=== PATIENT | female | born 1970 | race Caucasian/White ===

== ENCOUNTER 2019-04-30 16:35 | Inpatient (IN) | payer BC ==
[~2019-04-30 16:35] MED LIST: ISOVUE-370 76%-LOCM 1 ML ONE
[2019-04-30] MEDS ORDERED: Fentanyl 100 MCG/2 ML VIAL ONE (16:56)
[2019-04-30 17:38] LABS: #Basophils 0.1 thou/uL (0.0-0.2); #Eosinphils 0.1 thou/uL (0.0-0.7); #Lymphocytes 1.3 thou/uL (1.20-3.40); #Monocytes 0.5 thou/uL (0.11-0.59); #Neutrophils 7.4 thou/uL (1.40-6.50); %Basophils 0.8 % (0.0-1.0); %Eosinophils 1.6 % (0.0-10.0); %Lymphocytes 13.4 % (21.0-51.0); %Monocytes 5.4 % (0.0-10.0); %Neutrophils 78.7 % (42.0-75.0); Hemoglobin 13.9 g/dL (12.0-16.0); Mean Corpuscular HGB CONC 33.6 g/dL (32.0-36.0); Mean Corpuscular Hemoglobin 34.7 pg (27.0-31.0); Platelet Count 172 thou/uL (130-400); RBC Distribution Width 12.3 % (11.5-14.5); White Blood Cell (WBC) Count 9.4 thou/uL (4.8-10.8)
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
[2019-04-30 17:45] LABS: BHCG - Serum Negative (NEGATIVE); Pregs Control Background? CLEAR/WHITE (CLR/WHITE); Pregs Control Bar Appear? YES (CONTROL BAR)
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
[2019-04-30 17:59] LABS: ALT (SGPT) 30 U/L (8-55); AST (SGOT) 24 U/L (5-34); Albumin 3.5 g/dL (3.5-5.0); Alkaline Phosphatase 53 U/L (40-150); Anion Gap 11 mmol/L (10-20); BUN (Urea Nitrogen) 8 mg/dL (7.0-18.7); Bilirubin, Total 0.2 mg/dL (0.2-1.2); Calc. Creatinine Clearance 0 mL/min (70-130); Calcium 7.8 mg/dL (7.8-10.44); Carbon Dioxide 25 mmol/L (22-29); Chloride 108 mmol/L (98-107); Estimated GFR-MDRD Greater than 90; Globulin 2.2 g/dL (2.4-3.5); Glucose 77 mg/dL (70-105); Lipase 34 U/L (8-78); Potassium 3.5 mmol/L (3.5-5.1); Protein, Total 5.7 g/dL (6.0-8.3); Sodium 140 mmol/L (136-145)
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
[2019-04-30] MEDS ORDERED: Ketorolac Tromethamine 30 MG/ML VIAL ONE ×2 (18:28→18:29)
[2019-04-30] MEDS ORDERED: Morphine 4 MG/ML VIAL ONE (18:28)
[2019-04-30 18:33] LABS: Bilirubin Negative (Negative); Blood, Urine Negative (Negative); Clarity CLEAR (Clear); Glucose, Urine (Dipstick) Negative (Negative); Leukocyte Negative (Negative); Nitrite Negative (Negative); Protein, Urine (Dipstick) Negative (Neg-Trace); Urobilinogen 0.2 mg/dL (0.2-1.0)
[2019-04-30] MEDS ORDERED: Dextrose 5% in Water 1,000 ML IV PRN (19:54)
[2019-04-30] MEDS ORDERED: Dextrose 50% Abboject 50 ML SYRINGE SLOW IVP PRN (19:54)
[2019-04-30] MEDS ORDERED: Ondansetron ODT 4 MG TAB PO PRN (19:54)
[2019-04-30] MEDS ORDERED: Promethazine HCl 25 MG/ML VIAL IM PRN (19:54)
[2019-04-30] MEDS: Famotidine 20 MG TAB PO SCH (20:15)
[2019-04-30] MEDS: Cyclobenzaprine 10 MG TAB PO PRN (20:15)
[2019-04-30] MEDS: Gabapentin 300 MG CAP PO SCH (20:15)
[2019-04-30] MEDS: traMADol HCl 50 MG TAB PO PRN (20:15)
[2019-04-30] MEDS: Ondansetron PF 4 MG/2 ML Vial IVP PRN (20:16)
[2019-04-30] MEDS: Acetaminophen 325 MG TAB PO SCH (20:48)
[2019-04-30] MEDS: traMADol HCl 50 MG TAB PO SCH (20:48)
[2019-04-30] MEDS: Ibuprofen 600 MG TAB PO SCH (20:48)
[2019-04-30] MEDS: Promethazine HCl 25 MG/ML VIAL IM PRN (21:27)
[2019-04-30] MEDS ORDERED: Acetaminophen 325 MG TAB PO SCH (23:59)
[2019-04-30] MEDS ORDERED: traMADol HCl 50 MG TAB PO SCH (23:59)
[2019-04-30] MEDS ORDERED: Ibuprofen 600 MG TAB PO SCH (23:59)
[2019-05-01 02:09] VITALS: BMI 22.4
[2019-05-01] MEDS: traMADol HCl 50 MG TAB PO SCH ×3 (02:46→20:24)
[2019-05-01] MEDS: Acetaminophen 325 MG TAB PO SCH ×4 (02:46→20:24)
[2019-05-01] MEDS: Ibuprofen 600 MG TAB PO SCH ×4 (02:46→20:24)
[2019-05-01] MEDS: traMADol HCl 50 MG TAB PO PRN ×2 (02:47→11:21)
[2019-05-01 05:22] LABS: #Basophils 0.1 thou/uL (0.0-0.2); #Eosinphils 0.2 thou/uL (0.0-0.7); #Lymphocytes 1.7 thou/uL (1.20-3.40); #Monocytes 0.7 thou/uL (0.11-0.59); %Eosinophils 2.9 % (0.0-10.0); %Lymphocytes 21.6 % (21.0-51.0); %Monocytes 9.7 % (0.0-10.0); %Neutrophils 64.9 % (42.0-75.0); Hemoglobin 12.7 g/dL (12.0-16.0); Mean Corpuscular HGB CONC 32.8 g/dL (32.0-36.0); Mean Corpuscular Hemoglobin 34.3 pg (27.0-31.0); Mean Platelet Volume 8.3 fL (7.4-10.4); Platelet Count 160 thou/uL (130-400); RBC Distribution Width 12.4 % (11.5-14.5); White Blood Cell (WBC) Count 7.6 thou/uL (4.8-10.8)
[2019-05-01 05:39] LABS: Anion Gap 9 mmol/L (10-20); BUN (Urea Nitrogen) 13 mg/dL (7.0-18.7); Calc. Creatinine Clearance 103 mL/min (70-130); Calcium 8.3 mg/dL (7.8-10.44); Carbon Dioxide 27 mmol/L (22-29); Chloride 109 mmol/L (98-107); Estimated GFR-MDRD Greater than 90; Glucose 91 mg/dL (70-105); Potassium 4.5 mmol/L (3.5-5.1); Sodium 140 mmol/L (136-145)
[2019-05-01] MEDS: Famotidine 20 MG TAB PO SCH ×2 (08:10→20:24)
[2019-05-01] MEDS: Gabapentin 300 MG CAP PO SCH ×2 (08:10→20:24)
--- NOTE | 2019-05-01 09:01 | RAD ---
CHEST 1 VIEW: Date: 05/01/19 HISTORY: Follow-up left-sided rib fractures and hemothorax. COMPARISON: Prior day's study. FINDINGS: Heart size within normal limits. Left-sided pleural and parenchymal lung changes and rib fractures ar e again noted. No pneumothorax demonstrated. The right lung remains clear. IMPRESSION: Stable exam. POS: [facility]
[2019-05-01] MEDS ORDERED: Lidocaine 1% (PF) 30 ML VIAL ONE (10:26)
[2019-05-01] MEDS ORDERED: Morphine 4 MG/ML VIAL ONE (11:51)
[2019-05-01] MEDS: Cyclobenzaprine 10 MG TAB PO PRN (13:10)
[2019-05-01] MEDS: Ondansetron PF 4 MG/2 ML Vial IVP PRN (13:10)
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
[2019-05-02] MEDS: Acetaminophen 325 MG TAB PO SCH ×4 (03:57→20:27)
[2019-05-02] MEDS: Ibuprofen 600 MG TAB PO SCH ×4 (03:57→20:27)
[2019-05-02] MEDS: traMADol HCl 50 MG TAB PO SCH ×3 (03:57→20:28)
[2019-05-02 05:20] LABS: #Basophils 0.1 thou/uL (0.0-0.2); #Eosinphils 0.2 thou/uL (0.0-0.7); #Lymphocytes 1.6 thou/uL (1.20-3.40); #Monocytes 0.7 thou/uL (0.11-0.59); #Neutrophils 4.6 thou/uL (1.40-6.50); %Basophils 0.9 % (0.0-1.0); %Eosinophils 2.9 % (0.0-10.0); %Lymphocytes 22.1 % (21.0-51.0); %Monocytes 9.8 % (0.0-10.0); %Neutrophils 64.2 % (42.0-75.0); Hemoglobin 12.9 g/dL (12.0-16.0); Mean Corpuscular HGB CONC 31.9 g/dL (32.0-36.0); Mean Corpuscular Hemoglobin 33.9 pg (27.0-31.0); Mean Platelet Volume 8.3 fL (7.4-10.4); Platelet Count 153 thou/uL (130-400); RBC Distribution Width 12.5 % (11.5-14.5); White Blood Cell (WBC) Count 7.1 thou/uL (4.8-10.8)
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
[2019-05-02] MEDS: Gabapentin 300 MG CAP PO SCH ×2 (08:08→20:27)
[2019-05-02] MEDS: Famotidine 20 MG TAB PO SCH ×2 (08:09→20:27)
[2019-05-02] MEDS: Cyclobenzaprine 10 MG TAB PO PRN ×2 (08:14→21:39)
--- NOTE | 2019-05-02 08:53 | RAD ---
CHEST 1 VIEW: COMPARISON: 05/01/2019. HISTORY: Chest tube. Hemothorax. FINDINGS: Normal cardiac silhouette. The pulmonary vessels and hilum are normal. Right costophrenic angle is clear. Minimal blunting of the left costophrenic angle. Left-sided chest tube at the left lung base is noted. Small left-sided effusion. There are left rib fractures. No significant pneumothorax. IMPRESSION: Posttraumatic changes as above. No significant pneumothorax. POS: [facility]
[2019-05-02] MEDS: Enoxaparin Sodium 40 MG/0.4 ML SYRINGE SC SCH (11:16)
[2019-05-02] MEDS: Scopolamine 1.5 mg/72 hour Patch TOP SCH (12:38)
[2019-05-02] MEDS: traMADol HCl 50 MG TAB PO PRN ×2 (12:44→21:38)
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
[2019-05-03] MEDS: Ibuprofen 600 MG TAB PO SCH ×4 (02:19→21:38)
[2019-05-03] MEDS: traMADol HCl 50 MG TAB PO SCH ×3 (02:20→23:45)
[2019-05-03] MEDS: Acetaminophen 325 MG TAB PO SCH ×4 (02:22→22:11)
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
[2019-05-03] MEDS: Famotidine 20 MG TAB PO SCH ×2 (08:31→21:37)
[2019-05-03] MEDS: Gabapentin 300 MG CAP PO SCH ×3 (08:31→21:38)
[2019-05-03] MEDS: Enoxaparin Sodium 40 MG/0.4 ML SYRINGE SC SCH (08:31)
[2019-05-03] MEDS: Ondansetron PF 4 MG/2 ML Vial IVP PRN (08:43)
--- NOTE | 2019-05-03 09:23 | RAD ---
CHEST 1 VIEW: HISTORY: Followup hemothorax. COMPARISON: 05/02/2019. FINDINGS: A left chest tube is noted in the left lower chest. There is a possible tiny apical pneumothorax. P leural and parenchymal opacity changes in the left chest are overall stable. There appear to be some new abnormal opacity changes in the right infrahilar region raising concern for some developing part ial atelectasis and/or right-sided pleural fluid. IMPRESSION: Overall stable-appearing left chest. Developing right infrahilar increased density, evidence for rig ht lower lobe partial atelectasis and/or some developing right pleural fluid. Continued short-term f ollowup. POS: [facility]
[2019-05-03] MEDS: traMADol HCl 50 MG TAB PO PRN (13:49)
[2019-05-03] MEDS: Promethazine HCl 25 MG/ML VIAL IM PRN (13:50)
[2019-05-03] MEDS: Acetaminophen 500 MG TAB PO SCH (21:37)
[2019-05-03] MEDS: Nicotine 14 MG PATCH TOP SCH (22:50)
[2019-05-04] MEDS: Acetaminophen 500 MG TAB PO SCH ×4 (03:28→20:52)
[2019-05-04] MEDS: Ibuprofen 600 MG TAB PO SCH ×4 (03:29→20:52)
[2019-05-04] MEDS: traMADol HCl 50 MG TAB PO SCH ×4 (05:56→23:33)
--- NOTE | 2019-05-04 08:02 | RAD ---
XR Chest 1 View Portable History: Chest tube placement Comparison: Radiograph April 03, 2019 Findings: Interval placement of a left basilar thoracostomy tube with slight size decrease layering l eft effusion. Mildly displaced left sided rib fractures persist. Mild right-sided atelectasis. Impression: Interval size decrease layering left pleural effusion with indwelling basilar thoracostom y tube.
[2019-05-04] MEDS: Enoxaparin Sodium 40 MG/0.4 ML SYRINGE SC SCH (08:20)
[2019-05-04] MEDS: Famotidine 20 MG TAB PO SCH ×2 (08:21→20:53)
[2019-05-04] MEDS: Gabapentin 300 MG CAP PO SCH ×3 (08:21→20:53)
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
--- NOTE | 2019-05-04 15:27 | RAD ---
CHEST 1 VIEW: Date: 05/04/19 HISTORY: Follow-up chest tube. COMPARISON: 05/04/19, 0744 hours. FINDINGS: There is a small to potentially moderate left-sided pneumothorax, particularly in the left upper ches t, but also some air along the right hemidiaphragm and medially along the mediastinum. Left chest tub e remains in place in the lower chest. Bibasilar parenchymal changes are again noted, somewhat more p rominent in the left chest. Heart size is normal. IMPRESSION: Small, up to potentially moderate, left-sided pneumothorax, possibly increasing somewhat from the tova or study. Bibasilar parenchymal changes, overall stable. Continue short-term follow-up. POS: [facility]
[2019-05-04] MEDS: Nicotine 14 MG PATCH TOP SCH (22:38)
[2019-05-04] MEDS: Cyclobenzaprine 10 MG TAB PO PRN (22:38)
[2019-05-05] MEDS: Ibuprofen 600 MG TAB PO SCH ×4 (03:06→21:11)
[2019-05-05] MEDS: Acetaminophen 500 MG TAB PO SCH ×4 (03:07→21:10)
[2019-05-05] MEDS: traMADol HCl 50 MG TAB PO SCH ×4 (05:23→23:34)
[2019-05-05 05:46] LABS: Anion Gap 10 mmol/L (10-20); BUN (Urea Nitrogen) 14 mg/dL (7.0-18.7); Calc. Creatinine Clearance 126 mL/min (70-130); Calcium 8.7 mg/dL (7.8-10.44); Carbon Dioxide 32 mmol/L (22-29); Chloride 99 mmol/L (98-107); Estimated GFR-MDRD Greater than 90; Glucose 84 mg/dL (70-105); Potassium 4.3 mmol/L (3.5-5.1); Sodium 137 mmol/L (136-145)
[2019-05-05] MEDS: traMADol HCl 50 MG TAB PO PRN (06:30)
--- NOTE | 2019-05-05 07:20 | RAD ---
FRONTAL VIEW CHEST: Date: 05/05/19 INDICATION: Pneumothorax, follow-up. FINDINGS: Reference is made to chest radiograph exams performed on the previous day. Small volume predominantly left apical pneumothorax remains, and is similar appearing. Persistent den sity at the inferior left chest is present with interval removal of prior left thoracostomy. Inferola teral left rib fractures are again seen. Chest is otherwise similar. IMPRESSION: 1. Interval removal of left chest tube, with grossly stable small volume left pneumothorax. 2. Persistent patchy densities, inferior left chest, with adjacent several left rib fractures. POS: [facility]
[2019-05-05] MEDS: Enoxaparin Sodium 40 MG/0.4 ML SYRINGE SC SCH (09:14)
[2019-05-05] MEDS: Famotidine 20 MG TAB PO SCH ×2 (09:15→21:11)
[2019-05-05] MEDS: Gabapentin 300 MG CAP PO SCH ×3 (09:15→21:10)
[2019-05-05] MEDS: Thiamine 100 MG TAB PO SCH (09:15)
[2019-05-05] MEDS: Folic Acid 1 MG TAB PO SCH (09:15)
[2019-05-05] MEDS ORDERED: Senokot 8.6 MG TAB PO SCH (10:45)
[2019-05-05] MEDS: Scopolamine 1.5 mg/72 hour Patch TOP SCH (11:58)
[2019-05-05] MEDS ORDERED: Ipratropium Bromide 2.5 ml Neb NEB SCH (13:00)
[2019-05-05] MEDS: methylPREDNISolone 4 mg Tablet PO SCH ×2 (17:37→21:12)
[2019-05-05] MEDS: Ipratropium Bromide 2.5 ml Neb NEB SCH ×4 (19:20→23:07)
[2019-05-05] MEDS: Nicotine 14 MG PATCH TOP SCH (21:11)
[2019-05-05] MEDS: Senokot S 8.6-50 MG TAB PO SCH (21:12)
[2019-05-06] MEDS: Ibuprofen 600 MG TAB PO SCH ×2 (03:20→08:39)
[2019-05-06] MEDS: Acetaminophen 500 MG TAB PO SCH ×2 (03:20→08:39)
[2019-05-06] MEDS: traMADol HCl 50 MG TAB PO SCH ×2 (05:16→12:29)
[2019-05-06] MEDS ORDERED: Spiriva 18 MCG CAP (Box of 5 Caps) INH SCH (07:00)
[2019-05-06] MEDS: Ipratropium Bromide 2.5 ml Neb NEB SCH ×2 (07:27→07:32)
[2019-05-06] MEDS ORDERED: methylPREDNISolone 4 mg Tablet PO SCH ×2 (08:00→21:00)
[2019-05-06] MEDS: Gabapentin 300 MG CAP PO SCH (08:39)
[2019-05-06] MEDS: Thiamine 100 MG TAB PO SCH (08:40)
[2019-05-06] MEDS: Famotidine 20 MG TAB PO SCH (08:40)
[2019-05-06] MEDS: Folic Acid 1 MG TAB PO SCH (08:40)
[2019-05-06] MEDS: Enoxaparin Sodium 40 MG/0.4 ML SYRINGE SC SCH (08:41)
[2019-05-06] MEDS: Senokot S 8.6-50 MG TAB PO SCH (08:41)
[2019-05-06] MEDS ORDERED: Polyethylene Glycol 3350 17 GM Packet PO SCH (09:00)
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
[2019-05-06 11:12] VITALS: BP 113/72; TEMP 98.3
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
[2019-05-07] MEDS ORDERED: methylPREDNISolone 4 mg Tablet PO SCH (08:00)
--- NOTE | 2019-05-07 21:10 | EKG ---
Test Reason : Blood Pressure : / mmHG Vent. Rate : 072 BPM Atrial Rate : 072 BPM P-R Int : 148 ms QRS Dur : 076 ms QT Int : 398 ms P-R-T Axes : 067 039 065 degrees QTc Int : 435 ms Normal sinus rhythm Normal ECG Confirmed by JARETH FRANCE ([id number]), scientific editor SOFIYA MENDIETA ([id number]) on 05/07/2019 9:09:55 PM Referred By: Confirmed By:JARETH FRANCE
[2019-05-08] MEDS ORDERED: methylPREDNISolone 4 mg Tablet PO SCH (08:00)
[2019-05-09] MEDS ORDERED: methylPREDNISolone 4 mg Tablet PO SCH (08:00)
[2019-05-10] MEDS ORDERED: methylPREDNISolone 4 mg Tablet PO SCH (08:00)
== END 2019-05-06 12:35 | disposition home or self-care (01) | DRG 200 ==
LOC: ERS 16:35 → SURG A 19:52 → OBSVTOIN 19:52
PROVIDERS: ADMIT Surgery; ATTEND Surgery
PROC: 0W9B30Z Drainage of Left Pleural Cavity with Drainage Device, Percutaneous Approach (ICD-10-PCS; principal; 2019-05-01)
DX: S27.1XXA Traumatic hemothorax, initial encounter (principal); S22.32XA Fracture of one rib, left side, initial encounter for closed fracture; R40.2412 Glasgow coma scale score 13-15, at arrival to emergency department; F17.210 Nicotine dependence, cigarettes, uncomplicated; J44.9 Chronic obstructive pulmonary disease, unspecified; I25.10 Atherosclerotic heart disease of native coronary artery without angina pectoris; F41.9 Anxiety disorder, unspecified; Z90.49 Acquired absence of other specified parts of digestive tract; V91.88XA Other injury due to other accident to other unpowered watercraft, initial encounter; Z98.51 Tubal ligation status
CPT/HCPCS: 36415; 36416; 70450; 71045; 71260; 72125; 74177; 80048; 80053; 81003; 82550; 83605; 83690; 84703; 85025; 93005; 94640; 96361; 96374; 96375; J1650; J1885; J2001; J2270; J2405; J2550; J3010; J7620; Q0162; Q9966

== ENCOUNTER 2019-05-17 13:22 | Outpatient (CLI) | payer BC ==
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
== END 2019-05-17 13:23 | disposition home or self-care (01) ==
LOC: RAD 13:22
PROVIDERS: ATTEND Surgery
DX: S22.42XD Multiple fractures of ribs, left side, subsequent encounter for fracture with routine healing (principal); J94.2 Hemothorax; J98.4 Other disorders of lung
CPT/HCPCS: 71046

== ENCOUNTER 2019-12-07 15:14 | Outpatient (CLI) | payer BC ==
--- NOTE | 2019-12-07 15:38 | RAD ---
Left femur 2 views HISTORY: Back pain. FINDINGS: Near complete loss of joint space at the hip with moderate osteophytosis and subchondral sc lerosis. Mild articular surface irregularity of the femoral head. No acute fracture or dislocation evident. There are mild degenerative changes of the knee evident. IMPRESSION: Prominent OsteoArthritic changes left hip. No acute osseous abnormalities are otherwise d emonstrated.
== END 2019-12-07 15:15 | disposition home or self-care (01) ==
LOC: BICRAD 15:14
PROVIDERS: ATTEND Clinical Nurse Specialist Medical-Surgical
DX: M25.552 Pain in left hip (principal); M89.8X5 Other specified disorders of bone, thigh; M16.12 Unilateral primary osteoarthritis, left hip

== ENCOUNTER 2020-10-05 06:44 | Outpatient (CLI) | payer BC ==
[2020-10-05 13:19] LABS: #Eosinphils 0.1 10x3/uL (0.0-0.5); #Monocytes 0.5 10x3/uL (0.0-1.1); #Neutrophils 5.5 10x3/uL (1.5-8.4); %Basophils 0.5 % (0.0-2.0); %Eosinophils 1.3 % (0.0-6.0); %Lymphocytes 20.4 % (18.0-47.0); %Monocytes 6.1 % (0.0-10.0); %Neutrophils 71.4 % (40.0-75.0); Hemoglobin 13.6 g/dL (12.0-16.0); Mean Corpuscular HGB CONC 32.5 G/DL (32.0-36.0); Mean Corpuscular Hemoglobin 33.3 PG (27.0-33.0); Mean Corpuscular Volume 102.7 fl (80.0-100.0); Mean Platelet Volume 10.6 fl (7.4-10.4); Platelet Count 226 10x3/uL (130-400); RBC Distribution Width 12.6 % (11.5-14.5); Red Blood Cell (RBC) Count 4.08 10x6/uL (3.90-5.20); White Blood Cell (WBC) Count 7.7 10x3/uL (4.5-11.0)
[2020-10-05 13:28] LABS: Anion Gap 13 mmol/L (10-20); BUN (Urea Nitrogen) 15 mg/dL (7.0-18.7); Calc. Creatinine Clearance 0 mL/min (70-130); Calcium 9.6 mg/dL (7.8-10.44); Carbon Dioxide 28 mmol/L (22-29); Chloride 102 mmol/L (98-107); Glucose 81 mg/dL (70-105); Potassium 4.4 mmol/L (3.5-5.1); Sodium 139 mmol/L (136-145)
[2020-10-05 13:35] LABS: INR-International Normal Ratio 0.9
--- NOTE | 2020-10-05 16:17 | EKG ---
Test Reason : PREOP Blood Pressure : / mmHG Vent. Rate : 062 BPM Atrial Rate : 062 BPM P-R Int : 146 ms QRS Dur : 074 ms QT Int : 416 ms P-R-T Axes : 075 079 071 degrees QTc Int : 422 ms Normal sinus rhythm Normal ECG Confirmed by DR. Tammy LEOS ([id number]) on 10/05/2020 4:17:03 PM Referred By: KIRK Confirmed By:DR. Tammy LEOS
[2020-10-05 22:25] LABS: SARS-CoV-2 MS2 Positive; SARS-CoV-2 N Gene Negative; SARS-CoV-2 S Gene Negative; SARS-CoV-2 by NAA Not Detected (NotDetected); SARS-CoV-2 orf1ab Negative
== END 2020-10-05 06:45 | disposition home or self-care (01) ==
LOC: LABBT 06:44
PROVIDERS: ATTEND Orthopaedic Surgery
DX: Z01.818 Encounter for other preprocedural examination (principal); Z20.828 Contact with and (suspected) exposure to other viral communicable diseases; M17.11 Unilateral primary osteoarthritis, right knee
CPT/HCPCS: 80048; 85025; 85610; 87635; 93005; 93010; U0003

== ENCOUNTER 2020-10-05 11:00 | Inpatient (IN) | payer BC ==
[2020-10-09] MEDS ORDERED: Sodium Chloride 0.9% 100 ML ONE (06:14)
[2020-10-09] MEDS ORDERED: Tranexamic Acid 1,000 MG/10 ML VIAL ONE (06:14)
[2020-10-09] MEDS ORDERED: Vancomycin 1 GM/200 ML BAG ONE (06:15)
[2020-10-09] MEDS ORDERED: Bupivacaine 0.25% HCL 30 ML VIAL ONE (06:22)
[2020-10-09] MEDS ORDERED: Lidocaine 1% w/Epinephrine 1:100K 20 ML VIAL ONE (06:22)
[2020-10-09] MEDS ORDERED: Midazolam HCl 2 mg/2 ml Vial ONE (06:32)
[2020-10-09] MEDS ORDERED: Fentanyl 100 MCG/2 ML VIAL ONE ×4 (06:32→09:44)
[2020-10-09] MEDS ORDERED: Fentanyl 100 MCG/2 ML VIAL IV PRN (07:08)
[2020-10-09] MEDS ORDERED: traMADol HCl 50 MG TAB PO PRN ×2 (07:15)
[2020-10-09] MEDS ORDERED: Zolpidem Tartrate 5 MG TAB PO PRN ×3 (07:15→11:01)
[2020-10-09] MEDS ORDERED: Ondansetron PF 4 MG/2 ML Vial IVP PRN ×2 (07:15→08:41)
[2020-10-09] MEDS ORDERED: Promethazine HCl 25 MG/ML VIAL IM PRN ×3 (07:15→09:17)
[2020-10-09] MEDS ORDERED: HYDROcodone/Acetaminophen 10/325 mg Tablet PO PRN ×3 (07:15→08:41)
[2020-10-09] MEDS ORDERED: Ropivacaine HCl/PF 250 ML in Premix Bag 1 BAG NERVE BLCK SCH (07:15)
[2020-10-09] MEDS ORDERED: diphenhydrAMINE 25 MG CAP PO PRN (08:41)
[2020-10-09] MEDS ORDERED: Acetaminophen 325 MG TAB PO PRN (08:41)
[2020-10-09] MEDS ORDERED: Fentanyl 100 MCG/2 ML VIAL SLOW IVP PRN ×2 (08:41)
[2020-10-09] MEDS ORDERED: Ondansetron HCl/PF 4 MG/2 ML Vial IVP PRN (09:17)
[2020-10-09] MEDS ORDERED: Promethazine HCl 25 MG/ML VIAL SLOW IVP PRN (09:17)
--- NOTE | 2020-10-09 10:32 | OP ---
DATE OF PROCEDURE: 10/09/2020 PREOPERATIVE DIAGNOSIS: Right knee osteoarthritis. POSTOPERATIVE DIAGNOSIS: Right knee osteoarthritis. PROCEDURE PERFORMED: Right total knee arthroplasty. COST ACCOUNTING MANAGER: Abraham Perdomo PA-C ANESTHESIOLOGIST: Otto Barbosa MD ANESTHESIA: The patient received LMA with an adductor canal single shot sciatic. ESTIMATED BLOOD LOSS: 100 mL. TOURNIQUET TIME: 65 minutes at 300 mmHg. ANTIBIOTICS: Ancef 2 g, vancomycin 1 g, and TXA 1. IMPLANTS: The patient had a Colette Triathlon size 3 femur, size 3 tibia, 9 CS with A29 patella. COMPLICATIONS: None. HISTORY OF PRESENT ILLNESS: Ms. Hardin is a pleasant 50-year-old female who has failed nonoperative measures and elected to proceed with right total knee arthroplasty. I discussed with her the risks and benefits of right total knee arthroplasty to include pain, scar, bleeding, infection, damage to vital structures, decreased range of motion and strength, continued pain despite surgical intervention, need for implant removal, failure revision, and loss of life or limb. The patient understood the risks and benefits and elected to proceed. DESCRIPTION OF PROCEDURE: Time-out was performed designating the patient's right lower extremity as the operative site based on site, consents, and markings. After time-out, the patient's right upper extremity was prepped and draped in sterile fashion. Tourniquet was brought up and left for a total of 65 minutes. I did an anterior midline incision with medial patellar approach and excised our fat pad. We did our soft tissue release, everted our patella, selected the femur, looking at the knee. We then mapped out the distal femur cut at 8 and 9, 0 degrees of varus and valgus, 4 degrees of anterior slope. We then pinned our guide, cut, measured for 3, put a 3 block, cut anterior and posterior chamfer cuts, removed osteophytes, placed our pickle fork in position, and took off the tip of the tibial spines. We then mapped out and cut 6 minus 1, 0 degrees varus and valgus, and 4 degrees of posterior slope. We removed and cleaned up our knee. We then moved to place the lamina spreaders. We did our medial and lateral meniscectomies, did our posterior decompression of PCL. We then pinned our [address] and good overall alignment and tracking. I placed a 9 poly, placed our femur in place, had good extension, flexion and stability in varus and valgus, drawer, good arc of motion. We everted the patella, measured about 22, cut it down to 12, trialed for and drilled for A29 patella, which tracked well. We then drilled our lugs, cut our keel for tibia, removed all implants, washed thoroughly, placed with cement for tibia, removed excess and placed our poly. We placed our cement for femur, removed excess cement, washed, everted the patella, and placed our excess cement. We then flexed the knee back up, washed, and cleaned up any of the wounds. We then came back. We ensured that we cleaned out all the flexed knee. We then washed the joint one more time. We closed with #2 Vicryl, #2 Stratafix, 0 Stratafix, 2-0 Stratafix, and Dermabond Prineo with wound in flexion. We allowed the glue to set for 1 minute. The patient will be admitted to [facility] postop protocol. My fitter's assistant helped me with the positioning, incision, retraction of major structures, osteotomies, implantation, cleaning, closure, and application of dressings. Job ID: [id number]
[2020-10-09] MEDS ORDERED: Ropivacaine 0.2% HCl/PF (40 MG/20 ML VIAL) ONE (10:36)
[2020-10-09] MEDS ORDERED: ePHEDrine 50 MG/ML VIAL ONE (10:36)
[2020-10-09] MEDS ORDERED: Rocuronium Bromide 10 MG/ML (10ML VIAL) ONE (10:36)
[2020-10-09] MEDS ORDERED: Dexamethasone 20 MG/5 ML VIAL ONE (10:36)
[2020-10-09] MEDS ORDERED: PROPOFOL 200 MG/20 ML VIAL ONE (10:36)
[2020-10-09] MEDS ORDERED: Ondansetron PF 4 MG/2 ML Vial ONE (10:36)
[2020-10-09] MEDS ORDERED: Bupivacaine HCl 0.5%/Epinephrine 1:200,000/PF 30 ml Vial ONE (10:36)
[2020-10-09] MEDS ORDERED: Ketorolac Tromethamine 30 MG/ML VIAL ONE (10:36)
[2020-10-09 10:52] VITALS: BMI 20.9
[2020-10-09] MEDS: Multivitamin W/ Minerals 1 TAB PO SCH (11:21)
[2020-10-09] MEDS: Dextrose 5 %-0.45 % NaCl 1,000 ML IV SCH ×2 (11:21→17:55)
[2020-10-09] MEDS: Aspirin 81 mg Enteric Coated Tablet PO SCH ×2 (11:21→21:35)
[2020-10-09] MEDS: Ferrous Gluconate 324 MG TAB PO SCH ×2 (11:21→21:35)
[2020-10-09] MEDS: Senokot S 8.6-50 MG TAB PO SCH ×2 (11:21→21:35)
[2020-10-09] MEDS ORDERED: Ketorolac Tromethamine 30 MG/ML VIAL IVP SCH (12:00)
[2020-10-09] MEDS: HYDROcodone/Acetaminophen 10/325 mg Tablet PO PRN (12:56)
[2020-10-09] MEDS: CEFAZOLIN 2 GM in Premix Bag 1 BAG IVPB SCH ×2 (14:02→21:35)
[2020-10-09] MEDS: Ketorolac Tromethamine 30 MG/ML VIAL IVP SCH ×2 (14:03→21:35)
[2020-10-09] MEDS: traMADol HCl 50 MG TAB PO PRN (16:12)
[2020-10-09] MEDS ORDERED: Vancomycin 1 GM in Premix Bag 1 BAG IVPB SCH (18:00)
[2020-10-10] MEDS: Dextrose 5 %-0.45 % NaCl 1,000 ML IV SCH ×3 (03:16→23:59)
[2020-10-10] MEDS: HYDROcodone/Acetaminophen 10/325 mg Tablet PO PRN ×4 (03:46→21:01)
[2020-10-10] MEDS: Ketorolac Tromethamine 30 MG/ML VIAL IVP SCH ×3 (05:46→21:03)
[2020-10-10 06:34] LABS: Hemoglobin 11.4 g/dL (12.0-16.0); Mean Corpuscular HGB CONC 32.1 g/dL (32.0-36.0); Mean Corpuscular Hemoglobin 33.9 pg (27.0-31.0); Mean Platelet Volume 8.1 fL (7.4-10.4); Platelet Count 153 thou/uL (130-400); RBC Distribution Width 11.3 % (11.5-14.5); Red Blood Cell (RBC) Count 3.35 mill/uL (4.20-5.40); White Blood Cell (WBC) Count 9.5 thou/uL (4.8-10.8)
[2020-10-10] MEDS: traMADol HCl 50 MG TAB PO PRN ×2 (07:58→17:54)
[2020-10-10] MEDS: Senokot S 8.6-50 MG TAB PO SCH ×2 (07:59→21:02)
[2020-10-10] MEDS: Multivitamin W/ Minerals 1 TAB PO SCH (07:59)
[2020-10-10] MEDS: Aspirin 81 mg Enteric Coated Tablet PO SCH ×2 (07:59→21:02)
[2020-10-10] MEDS: Ferrous Gluconate 324 MG TAB PO SCH ×2 (07:59→21:02)
[2020-10-10] MEDS: Varenicline Tartrate 0.5 MG TAB PO SCH (09:13)
[2020-10-11] MEDS: HYDROcodone/Acetaminophen 10/325 mg Tablet PO PRN ×3 (04:04→13:35)
[2020-10-11] MEDS: Ketorolac Tromethamine 30 MG/ML VIAL IVP SCH ×2 (05:38→13:35)
[2020-10-11 06:06] LABS: Hemoglobin 10.9 g/dL (12.0-16.0); Mean Corpuscular HGB CONC 33.2 g/dL (32.0-36.0); Mean Corpuscular Hemoglobin 34.7 pg (27.0-31.0); Mean Platelet Volume 8.2 fL (7.4-10.4); Platelet Count 138 thou/uL (130-400); RBC Distribution Width 11.4 % (11.5-14.5); Red Blood Cell (RBC) Count 3.15 mill/uL (4.20-5.40); White Blood Cell (WBC) Count 7.7 thou/uL (4.8-10.8)
[2020-10-11] MEDS: Varenicline Tartrate 0.5 MG TAB PO SCH (08:20)
[2020-10-11] MEDS: Ferrous Gluconate 324 MG TAB PO SCH (08:21)
[2020-10-11] MEDS: Senokot S 8.6-50 MG TAB PO SCH (08:21)
[2020-10-11] MEDS: Aspirin 81 mg Enteric Coated Tablet PO SCH (08:21)
[2020-10-11] MEDS: Multivitamin W/ Minerals 1 TAB PO SCH (08:21)
[2020-10-11 11:16] VITALS: BP 110/70; TEMP 98.7
[2020-10-11] MEDS: Dextrose 5 %-0.45 % NaCl 1,000 ML IV SCH (20:54)
== END 2020-10-11 14:59 | disposition home or self-care (01) | DRG 470 ==
LOC: SJJU 10-09 05:28 → SURG A 10-09 10:37
PROVIDERS: ADMIT Orthopaedic Surgery; ATTEND Orthopaedic Surgery
PROC: 0SRC0J9 Replacement of Right Knee Joint with Synthetic Substitute, Cemented, Open Approach (ICD-10-PCS; principal; 2020-10-09)
DX: M17.11 Unilateral primary osteoarthritis, right knee (principal); Z20.828 Contact with and (suspected) exposure to other viral communicable diseases; J44.9 Chronic obstructive pulmonary disease, unspecified; F17.210 Nicotine dependence, cigarettes, uncomplicated; Z79.899 Other long term (current) drug therapy
CPT/HCPCS: 36415; 85027; C1713; C1776; J0690; J1100; J1885; J2250; J2405; J2704; J2795; J3010; J3370; J3490; S0020